=== PATIENT | male | born 2000 | race Caucasian/White ===

== ENCOUNTER 2025-09-17 10:05 | Emergency (ER) | payer SELFPAY ==
[~2025-09-17] VITALS: Ht 167.6 cm; Wt 78.0 kg
[2025-09-17 10:15] VITALS: O2SAT 98
[2025-09-17] MEDS ORDERED: LIDO-53 TP (12:44)
[2025-09-17] MEDS ORDERED: CYCL10TA21 MT (12:44)
[2025-09-17] MEDS ORDERED: IBUP-1455 MT (12:44)
[2025-09-17] MEDS: IBUPROFEN 600MG TABLET PO ONE (12:48)
[2025-09-17] MEDS: LIDOCAINE 5% PATCH TOP SCH (12:49)
[2025-09-17 12:59] VITALS: BP 130/75; PULSE 90; RESP 14; TEMP 36.9; O2SAT 99
== END 2025-09-17 13:00 | disposition home or self-care (01) ==
LOC: ER 10:05
DX: S16.1XXA Strain of muscle, fascia and tendon at neck level, initial encounter (principal); R51.9 Headache, unspecified; Y04.0XXA Assault by unarmed brawl or fight, initial encounter; Y93.89 Activity, other specified; Y92.89 Other specified places as the place of occurrence of the external cause; Y99.8 Other external cause status
CPT/HCPCS: 99283